=== PATIENT | female | born 1945 | race Caucasian/White ===

== ENCOUNTER 2017-11-25 11:00 | Inpatient (IN) | payer OTHER ==
[~2017-11-25] VITALS: Ht 144.8 cm; Wt 65.3 kg
[2017-11-25] MEDS ORDERED: COZAAR100 MG PO (14:41)
[2017-12-02] MEDS ORDERED: COLACE100 MG PO (09:25)
[2017-12-02] MEDS ORDERED: CLONAZEPAM1 MG PO (09:27)
[2017-12-02] MEDS ORDERED: PERCOCET 5-3251 EACH PO (09:27)
== END 2017-12-03 14:03 | disposition home or self-care (01) | DRG 472 ==
LOC: SURG 12-02 05:00 → O/R 12-02 05:00 → SURH 12-02 07:00 → SURG 12-02 11:58
PROVIDERS: Orthopaedic Surgery Orthopaedic Surgery of the Spine
PROC: 0RT30ZZ Resection of Cervical Vertebral Disc, Open Approach (ICD-10-PCS; 2017-12-02)
PROC: 07DS3ZZ Extraction of Vertebral Bone Marrow, Percutaneous Approach (ICD-10-PCS; 2017-12-02)
PROC: 0RG20A0 Fusion of 2 or more Cervical Vertebral Joints with Interbody Fusion Device, Anterior Approach, Anterior Column, Open Approach (ICD-10-PCS; principal; 2017-12-02 07:00)
DX: M47.12 Other spondylosis with myelopathy, cervical region (principal); M50.022 Cervical disc disorder at C5-C6 level with myelopathy; I10 Essential (primary) hypertension